=== PATIENT | male | born 1995 | race Caucasian/White ===

== ENCOUNTER 2017-10-16 11:02 | Emergency (ER) | payer BC ==
[~2017-10-16] VITALS: Ht 180.3 cm; Wt 116.5 kg
[2017-10-16 11:09] VITALS: TEMP 36.7; Ht 180.3 cm; Wt 116.5 kg
[2017-10-16] MEDS ORDERED: SODIUM CHLORIDE 0.9% 1000ML 1,000 ML IV STA (11:21)
--- NOTE | 2017-10-16 11:29 | EMERGENCY ROOM VISIT NOTE ---
History First contact with patient: 11:13 Chief Complaint: NAUSEA Stated Complaint: PASS OUT WHEN HE FEELS LIKE PUKINNG History of Present Illness The patient is a 22 year old male who presents to the Emergency Room via private vehicle accompanied by with complaints of "passed out, when he feels like puking". The patient states that he woke up around 5 AM and felt as if he is going to have diarrhea. He went to the bathroom and had an episode of diarrhea and then felt a sensation that he was going to vomit. At the point where he felt he was going to vomit and he then passed out. He has passed a total of 3 times since that time when he feels like he is going to vomit. He denies any cardiac history or history of having this before. He does note that his daughter and had a virus last week which has passed. He denies any medication changes, or antibiotic changes or recent antibiotic use. He denies any medical problems. No history of cardiac arrhythmia. He states that when he gets a sensation of vomit he immediately feels lightheaded, and feels very dizzy and then passes out. The has witnessed these events and notes that he did not strike his head hard. He was unconscious for about 1 minute after syncopal event. He notes right now he has a little bit of a headache. No other symptoms. Review of Systems A complete 10-point Review of Systems was discussed with the patient, with pertinent positives and negatives listed in the History of Present Illness. All remaining Review of Systems questions can be considered negative unless otherwise specified. Past Medical/Surgical History No pertinent Family History No pertinent Social History Smoking Status: Never Smoker Pt. lives locally with family Current/Historical Medications Scheduled Doxycycline (Monohydrate) (Doxycycline), 100 MG PO BID Physical Exam Vital Signs Date Time Temp Pulse Resp B/P (MAP) Pulse Ox O2 Delivery O2 Flow Rate FiO2 10/16/17 14:14 94 16 138/81 100 Room Air 10/16/17 13:24 95 18 154/88 98 Room Air 10/16/17 11:42 81 152/77 92 143/67 83 139/72 10/16/17 11:42 100 Room Air 10/16/17 11:09 36.7 87 17 129/74 98 Room Air Physical Exam VITAL SIGNS - Vital signs and nursing notes were reviewed. Stable. GENERAL - 22-year-old male appearing his stated age. Communicates well with provider and answers questions appropriately. SKIN - Gross examination of the entire body surface demonstrates no lacerations to the body surface. HEAD - Normocephalic, Atraumatic. No Llamas's Sign or Raccoon's Eyes. No depressed skull fractures palpable. EYES - PERRL with EOMI bilaterally. Without subconjunctival hemorrhage. Palpebral conjunctiva pink and moist with no injection. EARS - No deformities of external structures noted on gross examination bilaterally. No hemotympanum present. No tympanic perforation noted. Handle of malleus, umbo, cone of light, pars tensa/flaccid all easily visualized. NOSE - Midline and without cyanosis. No epistaxis or clear watery discharge noted. Septum midline without deviation. No septal hematoma noted. No overlying ecchymosis noted. MOUTH/OROPHARYNX - Without perioral cyanosis. Tongue midline with equal elevation of palate bilaterally. No blood noted in the oropharynx. No tonsillar hypertrophy, erythema, or exudates noted. No dental fractures noted. NECK -no tenderness to palpation over the cervical spinous processes. No cervical paraspinal muscle tenderness noted. LUNGS - Chest wall symmetric without accessory muscle use, intercostals retractions, or central cyanosis. Normal vesicular breath sounds CTA B/L. No wheezes, rales, or rhonchi appreciated. CARDIAC - RRR with S1/S2. No murmur, rubs, or gallops appreciated. ABDOMEN - Abdominal contour normal and without pulsations or visible masses. BS normoactive all four quadrants. Minimal generalized abdominal tenderness which the patient relates to being the sensation of having to move his bowels. No rebound tenderness or guarding noted. No palpable masses, hepatosplenomegaly, or ascites noted. EXTREMITIES - No gross deformities noted of the extremities. +5/5 strength noted in UE/LE bilaterally. NEUROLOGIC - Cranial nerves II through XII grossly intact. PSYCH - A&O, and cooperates fully with examiner. Pt is very pleasant and interacts well with examiner. Medical Decision & Procedures ER Provider Diagnostic Interpretation: HEAD WITHOUT CONTRAST (CT) CLINICAL HISTORY: 22 years-old Male with Syncope, struck head, Headache. Acute headache status post trauma TECHNIQUE: Multiple axial CT images of the head were obtained without contrast. A dose lowering technique was utilized adhering to the principles of ALARA. CT DOSE: 679.75 mGycm COMPARISON: None. FINDINGS: No acute intracranial hemorrhage, midline shift, intracranial mass, hydrocephalus, territorial ischemia or abnormal extra-axial collection. The calvarium is intact. The paranasal sinuses, mastoid air cells, and middle ear cavities are clear. IMPRESSION: No acute intracranial abnormality. The above report was generated using voice recognition software. It may contain grammatical, syntax or spelling errors. Electronically signed by: Avtar Carlos M.D. 10/16/2017 1:18 PM Dictated Date/Time: 10/16/2017 1:12 PM Laboratory Results 10/16/17 11:30 Red Blood Count 5.82, Mean Corpuscular Volume 84.4, Mean Corpuscular Hemoglobin 30.1, Mean Corpuscular Hemoglobin Concent 35.6, Mean Platelet Volume 11.1, Neutrophils (%) (Auto) 88.9, Lymphocytes (%) (Auto) 2.7, Monocytes (%) (Auto) 7.8, Eosinophils (%) (Auto) 0.2, Basophils (%) (Auto) 0.1, Neutrophils # (Auto) 12.88, Lymphocytes # (Auto) 0.39, Monocytes # (Auto) 1.13, Eosinophils # (Auto) 0.03, Basophils # (Auto) 0.02 10/16/17 11:30 Test 10/16/17 11:30 10/16/17 11:49 White Blood Count 14.49 K/uL (4.8-10.8) Red Blood Count 5.82 M/uL (4.7-6.1) Hemoglobin 17.5 g/dL (14.0-18.0) Hematocrit 49.1 % (42-52) Mean Corpuscular Volume 84.4 fL (80-100) Mean Corpuscular Hemoglobin 30.1 pg (25-34) Mean Corpuscular Hemoglobin Concent 35.6 g/dl (32-36) Platelet Count 168 K/uL (130-400) Mean Platelet Volume 11.1 fL (7.4-10.4) Neutrophils (%) (Auto) 88.9 % Lymphocytes (%) (Auto) 2.7 % Monocytes (%) (Auto) 7.8 % Eosinophils (%) (Auto) 0.2 % Basophils (%) (Auto) 0.1 % Neutrophils # (Auto) 12.88 K/uL (1.4-6.5) Lymphocytes # (Auto) 0.39 K/uL (1.2-3.4) Monocytes # (Auto) 1.13 K/uL (0.11-0.59) Eosinophils # (Auto) 0.03 K/uL (0-0.5) Basophils # (Auto) 0.02 K/uL (0-0.2) RDW Standard Deviation 37.4 fL (36.4-46.3) RDW Coefficient of Variation 12.4 % (11.5-14.5) Immature Granulocyte % (Auto) 0.3 % Immature Granulocyte # (Auto) 0.04 K/uL (0.00-0.02) Anion Gap 9.0 mmol/L (3-11) Est Creatinine Clear Calc Drug Dose 149.1 ml/min Estimated GFR () 122.4 Estimated GFR (Non- 105.6 BUN/Creatinine Ratio 13.3 (10-20) Calcium Level 9.0 mg/dl (8.5-10.1) Magnesium Level 2.1 mg/dl (1.8-2.4) Total Bilirubin 0.7 mg/dl (0.2-1) Aspartate Amino Transf (AST/SGOT) 19 U/L (15-37) Alanine Aminotransferase (ALT/SGPT) 39 U/L (12-78) Alkaline Phosphatase 92 U/L (45-117) Total Creatine Kinase 93 U/L (39-308) Creatine Kinase MB < 0.5 ng/ml (0.5-3.6) Creatine Kinase MB Ratio (0-3.0) Troponin I < 0.015 ng/ml (0-0.045) Total Protein 8.5 gm/dl (6.4-8.2) Albumin 4.3 gm/dl (3.4-5.0) Globulin 4.2 gm/dl (2.5-4.0) Albumin/Globulin Ratio 1.0 (0.9-2) Thyroid Stimulating Hormone (TSH) 0.837 uIu/ml (0.300-4.500) Lyme Disease IgG Antibody POS (NEG) Urine Color YELLOW Urine Appearance CLEAR (CLEAR) Urine pH 6.5 (4.5-7.5) Urine Specific Jackson 1.023 (1.000-1.030) Urine Protein NEG (NEG) Urine Glucose (UA) NEG (NEG) Urine Ketones NEG (NEG) Urine Occult Blood NEG (NEG) Urine Nitrite NEG (NEG) Urine Bilirubin NEG (NEG) Urine Urobilinogen NEG (NEG) Urine Leukocyte Esterase NEG (NEG) Influenza Type A Antigen Neg for Influ A (NEG) Influenza Type B Antigen Neg for Influ B (NEG) Medications Administered Medications (Trade) Dose Ordered Sig/Chandana Route Start Time Stop Time Status Last Admin Dose Admin Sodium Chloride 1,000 ml @ 999 mls/hr Q1H1M STAT IV 10/16/17 11:21 10/16/17 12:21 DC 10/16/17 11:21 999 MLS/HR Medical Decision Patient was seen and evaluated as above. He presents to us today status post 3 episodes of syncope when he was attempting to vomit. This certainly sounds vasovagal in nature. Review was performed of nursing notes and vital signs. After obtaining a thorough history and physical examination the above work up was performed. Patient's bedside EKG was performed and per my interpretation is normal sinus rhythm, with a nonspecific ST segment abnormality. I do not believe this to be of significance, do not suspect PR or any other emergent episode. This was reviewed with the attending physician. Orthostatics were obtained, and no true orthostasis was noted. However, he was given a liter of normal saline. There is leukocytosis of 14.49 which is likely secondary to his emesis. He is not febrile. There is no evidence of kidney or liver failure. Protein slightly high. TSH normal. Troponin negative. Urine negative. Lyme IGG positive, IGM equivocal. CT scan of head negative. This was obtained secondary to him striking his head when he passed out. I will treat with Doxycycline x 21 days. He is to obtain and follow up with family doctor. Possibly cardiology if warranted to differentiate likely vasovagal episode. He has had no vasovagal episodes while here. He is to return with worsening. The patient was educated upon management, had questions answered prior to discharge , and was discharged home in good condition. Case was discussed with the attending physician. I attest that I have personally reviewed the patient medication list. I attest that I have reviewed the patient's blood pressure and it was found to be Elevated slightly likely secondary to situation In the evaluation and treatment of this patient, the following differential diagnoses were considered: Concussion, Contrecoup Injury, Brain Tumor, Depression, Encephalitis, Hypothyroidism, Meningitis, CVA, TIA, Migraine, Cluster Headache, Intracranial Abnormality, Intracranial Hemorrhage, Subdural Hematoma, Subarachnoid Hemorrhage, Hydrocephalus. Impression Primary Impression: Syncope Additional Impression: Positive Lyme disease serology Departure Information Dispostion Home / Self-Care Condition GOOD Prescriptions Doxycycline (Monohydrate) (Doxycycline) 100 Mg Cap 100 MG PO BID for 21 Days, #42 TABS Prov: Fito Bailey PA-C 10/16/17 Referrals Carlos Gayle MD Patient Instructions [facility] Additional Instructions You have been treated in the Emergency Department your syncopal episode and diarrhea. Laboratory results and imaging studies have helped ruled out any emergent causes for your symptoms which would warrant admission or surgery. You have been prescribed Doxycycline to be taken as prescribed. This is an antibiotic. All antibiotics have the potential to cause diarrhea. Stop this medication and contact a medical provider if you were to develop any significant adverse side effects including: wheezing, shortness of breath, passing out, vomiting, or a diffuse rash. Always take antibiotics as directed and COMPLETE the ENTIRE course regardless of the improvement of your symptoms. Protect yourself with sunscreen while on this antibiotic as it increases your skin's sensitivity to the light and cause bad sunburns. In addition, you should be sure to take this pill after eating. Make sure the pill is completely swallowed as this medication can cause irritation to the lining of the esophagus. Do NOT drink milk or eat anything with large amounts of Calcium in them 1 hour prior to taking this medication as this will decrease the effectiveness of the medication. This is for the lyme disease on testing. However, follow up with a family doctor and potentially cardiology is warranted to further look into your passing out episodes that occurred today. As we discussed, I believe this is likely from a vaso-vagal episode today. For pain control, you can use the following [id number] medicines (if >12 yo): - Regular strength (325mg/tab) Tylenol (acetaminophen) 2 tabs every 4-6 hours as needed. Do not exceed 12 tablets in a 24 hour period. Avoid taking more than 3 grams (3000 mg) of Tylenol per day. This includes any other sources of acetaminophen you may take on a regular basis. - Regular strength (200 mg/tab) Advil (ibuprofen) 1-2 tabs every 4-6 hours as needed. Do not exceed a dose of 3200 mg per day. Drink plenty of water and stay well hydrated. As with any trip to the Emergency Department, you should follow-up with your Primary Care Provider from today's visit. Return to the emergency department if your symptoms persist despite treatment plan outlined above or if the following symptoms occur: increased fevers,chest pain, shortness of breath, chills, worsening nausea/vomiting, blood in your stool or urine. Problem Qualifiers
[2017-10-16 11:42] VITALS: O2SAT 100
[2017-10-16 11:50] LABS: HEMATOCRIT 49.1 % (42-52); HEMOGLOBIN 17.5 g/dL (14.0-18.0); MEAN CELL VOLUME 84.4 fL (80-100); MEAN CORPUSCULAR HEMOGLOBIN 30.1 pg (25-34); MEAN CORPUSCULAR HGB CONC 35.6 g/dl (32-36); MEAN PLATELET VOLUME 11.1 fL (7.4-10.4); PLATELET COUNT 168 K/uL (130-400); RED CELL DISTRIBUTION WIDTH CV 12.4 % (11.5-14.5); RED CELL DISTRIBUTION WIDTH SD 37.4 fL (36.4-46.3); WHITE BLOOD COUNT 14.49 K/uL (4.8-10.8)
[2017-10-16 12:07] LABS: ALBUMIN 4.3 gm/dl (3.4-5.0); ALT/SGPT 39 U/L (12-78); BLOOD UREA NITROGEN 13 mg/dl (7-18); CARBON DIOXIDE 26 mmol/L (21-32); GLUCOSE 108 mg/dl (70-99); POTASSIUM 4.2 mmol/L (3.5-5.1); SODIUM 138 mmol/L (136-145)
[2017-10-16 12:10] LABS: BASO % 0.1 %; BASO ABS # 0.02 K/uL (0-0.2); EOS % 0.2 %; EOS ABS # 0.03 K/uL (0-0.5); IG# 0.04 K/uL (0.00-0.02); LYMPH % 2.7 %; LYMPH ABS # 0.39 K/uL (1.2-3.4); MONO % 7.8 %; MONO ABS # 1.13 K/uL (0.11-0.59); NEUT % 88.9 %; NEUT ABS # 12.88 K/uL (1.4-6.5)
[2017-10-16 12:18] LABS: ALKALINE PHOSPHATASE 92 U/L (45-117); AST/SGOT 19 U/L (15-37); CKMB < 0.5 ng/ml (0.5-3.6); TOTAL PROTEIN 8.5 gm/dl (6.4-8.2)
[2017-10-16 12:49] LABS: INFLUENZA B ANTIGEN Neg for Influ B (NEG)
--- NOTE | 2017-10-16 13:20 | DIAGNOSTIC IMAGING REPORT ---
HEAD WITHOUT CONTRAST (CT) CLINICAL HISTORY: 22 years-old Male with Syncope, struck head, Headache. Acute headache status post trauma TECHNIQUE: Multiple axial CT images of the head were obtained without contrast. A dose lowering technique was utilized adhering to the principles of ALARA. CT DOSE: 679.75 mGycm COMPARISON: None. FINDINGS: No acute intracranial hemorrhage, midline shift, intracranial mass, hydrocephalus, territorial ischemia or abnormal extra-axial collection. The calvarium is intact. The paranasal sinuses, mastoid air cells, and middle ear cavities are clear. IMPRESSION: No acute intracranial abnormality. The above report was generated using voice recognition software. It may contain grammatical, syntax or spelling errors. Electronically signed by: Avtar Carlos M.D. 10/16/2017 1:18 PM Dictated Date/Time: 10/16/2017 1:12 PM
[2017-10-16 14:14] VITALS: BP 138/81; PULSE 94; O2SAT 100
[2017-10-16] MEDS ORDERED: DOXY-300 PO (14:15)
== END 2017-10-16 14:28 | disposition home or self-care (01) ==
LOC: C.EDB 11:08 → C.EDC 14:28
DX: R55 Syncope and collapse (principal); R76.8 Other specified abnormal immunological findings in serum; R42 Dizziness and giddiness; D72.829 Elevated white blood cell count, unspecified